=== PATIENT | female | born 1995 | race Caucasian/White ===

== ENCOUNTER 2020-02-24 10:19 | Outpatient (CLI) | payer BC ==
[2020-02-24 10:55] LABS: BASOPHILS % (AUTO) 0.4 % (0-1); EOSINOPHILS # (AUTO) 0.1 X10'3 (0-0.9); EOSINOPHILS % (AUTO) 1.2 % (0-6); HEMATOCRIT 39.7 % (35.0-45.0); HEMOGLOBIN 13.8 g/dl (12.0-16.0); LYMPHOCYTES # (AUTO) 2.7 X10'3 (1.1-4.8); MEAN CORPUSCULAR HEMOGLOBIN 32.7 PG (27.0-31.0); MEAN CORPUSCULAR HGB CONC 34.7 g/dL (33.0-36.5); MEAN CORPUSCULAR VOLUME 94.1 FL (78-98); MEAN PLATELET VOLUME 7.4 FL (7.4-10.4); MONOCYTES # (AUTO) 0.8 X10'3 (0-0.9); MONOCYTES % (AUTO) 9.5 % (2-12); NEUTROPHILS # (AUTO) 5.1 X10'3 (1.8-7.7); NEUTROPHILS % (AUTO) 57.9 % (42-75); PLATELET COUNT 425 X10'3 (140-440); RED BLOOD COUNT 4.22 X10'6 (4.20-5.60); RED CELL DISTRIBUTION WIDTH 12.3 % (11.5-14.5); WHITE BLOOD COUNT 8.7 X10'3 (4.5-11.0)
[2020-02-24 11:19] LABS: ALANINE AMINOTRANSFERASE 20 U/L (12-78); ALBUMIN/GLOBULIN RATIO 1.1 (1.1-1.5); ALKALINE PHOSPHATASE 105 IU/L (46-116); ANION GAP 9 (8-16); ASPARTATE AMINO TRANSFERASE 19 U/L (10-37); BILIRUBIN,TOTAL 0.5 MG/DL (0.1-1.0); BLOOD UREA NITROGEN 12 MG/DL (7-18); BUN/CREATININE RATIO 15.6 (6.6-38.0); CALCIUM 9.2 MG/DL (8.5-10.1); CHLORIDE 101 MMOL/L (99-107); CHOL/HDL RATIO 2.7 (0.00-4.99); CHOLESTEROL 140 MG/DL (0-200); CREATININE 0.77 MG/DL (0.40-0.90); GLUCOSE 88 MG/DL (70-104); HDL CHOLESTEROL 52 MG/DL (35-60); LDL CHOLESTEROL 74 MG/DL (50-100); POTASSIUM 4.1 MMOL/L (3.5-5.1); SODIUM 137 MMOL/L (135-145); TOTAL CARBON DIOXIDE 27.4 MMOL/L (24-32); TOTAL PROTEIN 7.8 G/DL (6.4-8.2); TRIGLYCERIDES 54 MG/DL (20-135); eGFR > 90 ML/MIN
[2020-02-24 11:28] LABS: CLARITY,URINE SLIGHTLY CLOUDY (Clear); COLOR,URINE STRAW (Yellow); GLUCOSE, URINE NEGATIVE (Neg); KETONES,URINE NEGATIVE (Neg); LEUKOCYTE ESTERASE ,URINE NEGATIVE (Neg); NITRITES, URINE NEGATIVE (Neg); OCCULT BLOOD,URINE SMALL (Neg); PROTEIN,URINE NEGATIVE (Neg); UROBILINOGEN,URINE 0.2 E.U/dL (0.2-1.0)
[2020-02-24 11:34] LABS: UA COLLECTION TYPE CLN CATCH MIDSTREAM
[2020-02-24 11:35] LABS: BACTERIA,URINE FEW /HPF (Neg); RBC,URINE 0-2 /HPF (0-2); SQUAMOUS EPITHELIAL CELL,UR FEW /LPF (FEW); WBC,URINE 0-4 /HPF (0-4)
== END 2020-02-24 23:59 | disposition home or self-care (01) ==
LOC: EEVIPCON 10:19 → LAB 10:19
PROVIDERS: ATTEND Family Medicine
DX: Z00.00 Encounter for general adult medical examination without abnormal findings (principal)
CPT/HCPCS: 36415; 80053; 80061; 81001; 84439; 84443; 85025

== ENCOUNTER 2022-03-02 07:32 | Emergency (ER) | payer BC ==
[~2022-03-02] VITALS: Ht 149.9 cm; Wt 63.0 kg
[2022-03-02 07:41] VITALS: BP 124/76
== END 2022-03-02 08:54 | disposition home or self-care (01) ==
LOC: ER 07:33
DX: B34.9 Viral infection, unspecified (principal); J06.9 Acute upper respiratory infection, unspecified; R53.83 Other fatigue; R05.9 Cough, unspecified; R09.89 Other specified symptoms and signs involving the circulatory and respiratory systems
CPT/HCPCS: 99281

== ENCOUNTER 2022-05-10 13:01 | Emergency (ER) | payer BC ==
[~2022-05-10] VITALS: Ht 149.9 cm; Wt 63.0 kg
[2022-05-10 13:22] VITALS: BP 126/84
[2022-05-10 15:19] LABS: BASOPHILS # (AUTO) 0.1 X10'3 (0-0.2); BASOPHILS % (AUTO) 0.5 % (0-1); EOSINOPHILS # (AUTO) 0.1 X10'3 (0-0.9); EOSINOPHILS % (AUTO) 0.7 % (0-6); LYMPHOCYTES # (AUTO) 2.8 X10'3 (1.1-4.8); LYMPHOCYTES % (AUTO) 23.3 % (21-51); MEAN CORPUSCULAR HEMOGLOBIN 31.9 PG (27.0-31.0); MEAN CORPUSCULAR HGB CONC 34.2 g/dL (33.0-36.5); MEAN CORPUSCULAR VOLUME 93.2 FL (78-98); MEAN PLATELET VOLUME 6.7 FL (7.4-10.4); MONOCYTES # (AUTO) 0.8 X10'3 (0-0.9); MONOCYTES % (AUTO) 7.1 % (2-12); NEUTROPHILS # (AUTO) 8.1 X10'3 (1.8-7.7); NEUTROPHILS % (AUTO) 68.4 % (42-75); PLATELET COUNT 444 X10'3 (140-440); RED BLOOD COUNT 4.08 X10'6 (4.20-5.60); RED CELL DISTRIBUTION WIDTH 12.7 % (11.5-14.5); WHITE BLOOD COUNT 11.8 X10'3 (4.5-11.0)
[2022-05-10 15:36] LABS: ALANINE AMINOTRANSFERASE 32 U/L (12-78); ALBUMIN/GLOBULIN RATIO 1.3 (1.1-1.5); ALKALINE PHOSPHATASE 88 IU/L (46-116); ANION GAP 9 (8-16); ASPARTATE AMINO TRANSFERASE 19 U/L (10-37); BILIRUBIN,TOTAL 0.3 MG/DL (0.1-1.0); BLOOD UREA NITROGEN 11 MG/DL (7-18); BUN/CREATININE RATIO 12.6 (6.6-38.0); CALCIUM 9.1 MG/DL (8.5-10.1); CHLORIDE 104 MMOL/L (99-107); CREATININE 0.87 MG/DL (0.40-0.90); GLUCOSE 97 MG/DL (70-104); SODIUM 139 MMOL/L (135-145); TOTAL CARBON DIOXIDE 26.1 MMOL/L (24-32); TOTAL PROTEIN 7.2 G/DL (6.4-8.2); eGFR 78 ML/MIN
[2022-05-10] MEDS ORDERED: MECL-231 PO (15:46)
== END 2022-05-10 16:18 | disposition home or self-care (01) ==
LOC: ER 13:01
DX: R42 Dizziness and giddiness (principal); H92.03 Otalgia, bilateral; R11.0 Nausea; R53.83 Other fatigue; R61 Generalized hyperhidrosis
CPT/HCPCS: 36415; 80053; 85025; 99283

== ENCOUNTER 2022-08-03 10:41 | Emergency (ER) | payer BC ==
[~2022-08-03] VITALS: Ht 149.9 cm; Wt 67.2 kg
[~2022-08-03 10:41] MED LIST: MECL-231 PO
[2022-08-03 10:46] VITALS: BP 120/80
--- NOTE | 2022-08-03 11:00 | NUR ---
Pt in [facility]4. Pt c/o general not feeling well. Pt c/o cough and sneezing. Pt educated to POC. Pt in agreement. Pending providers eval and treatment.
[2022-08-03] MEDS ORDERED: AMOX-580 PO (12:12)
== END 2022-08-03 12:26 | disposition home or self-care (01) ==
LOC: ER 10:42
DX: J32.9 Chronic sinusitis, unspecified (principal); J02.9 Acute pharyngitis, unspecified; Z20.822 Contact with and (suspected) exposure to COVID-19; Z79.899 Other long term (current) drug therapy
CPT/HCPCS: 87081; 87635; 87880; 99283; C9803

== ENCOUNTER 2022-09-01 08:07 | Emergency (ER) | payer BC ==
[~2022-09-01] VITALS: Ht 149.9 cm; Wt 65.9 kg
[~2022-09-01 08:07] MED LIST changes: +AMOX-580 PO
[2022-09-01 08:20] VITALS: BP 119/52
[2022-09-01] MEDS ORDERED: IBUP-1986 PO (09:22)
[2022-09-01] MEDS ORDERED: ketorolac trometh. 30mg/ml inj. IM ONE (09:25)
== END 2022-09-01 09:49 | disposition home or self-care (01) ==
LOC: ER 08:08
DX: M79.661 Pain in right lower leg (principal)
CPT/HCPCS: 96372; 99283; J1885; A6449

== ENCOUNTER 2023-04-29 12:50 | Outpatient (CLI) | payer BC ==
[~2023-04-29 12:50] MED LIST changes: -AMOX-580 PO; +IBUP-1986 PO
[2023-04-29 13:46] LABS: BASOPHILS % (AUTO) 0.5 % (0-1); EOSINOPHILS # (AUTO) 0.1 X10'3 (0-0.9); EOSINOPHILS % (AUTO) 0.5 % (0-6); HEMOGLOBIN 14.1 g/dl (12.0-16.0); LYMPHOCYTES # (AUTO) 3.4 X10'3 (1.1-4.8); LYMPHOCYTES % (AUTO) 33.8 % (21-51); MEAN CORPUSCULAR HEMOGLOBIN 31.2 PG (27.0-31.0); MEAN CORPUSCULAR HGB CONC 33.6 g/dL (33.0-36.5); MEAN CORPUSCULAR VOLUME 92.8 FL (78-98); MEAN PLATELET VOLUME 7.2 FL (7.4-10.4); MONOCYTES # (AUTO) 0.8 X10'3 (0-0.9); MONOCYTES % (AUTO) 8.4 % (2-12); NEUTROPHILS # (AUTO) 5.7 X10'3 (1.8-7.7); NEUTROPHILS % (AUTO) 56.8 % (42-75); PLATELET COUNT 445 X10'3 (140-440); RED BLOOD COUNT 4.52 X10'6 (4.20-5.60); RED CELL DISTRIBUTION WIDTH 12.7 % (11.5-14.5)
== END 2023-04-29 23:59 | disposition home or self-care (01) ==
LOC: RAD 12:50
PROVIDERS: ATTEND Physician Assistant
DX: J32.9 Chronic sinusitis, unspecified (principal)
CPT/HCPCS: 36415; 70486; 85025

== ENCOUNTER 2023-07-03 09:09 | Emergency (ER) | payer BC ==
[~2023-07-03] VITALS: Ht 147.3 cm; Wt 66.6 kg
[2023-07-03] MEDS ORDERED: BENZ9GEL TOP (09:43)
[2023-07-03] MEDS ORDERED: HYDR-3965 PO (09:43)
[2023-07-03 09:55] VITALS: BP 104/74; PULSE 79; RESP 16; TEMP 97.9; O2SAT 98
== END 2023-07-03 10:00 | disposition home or self-care (01) ==
LOC: ER 09:10
DX: K05.30 Chronic periodontitis, unspecified (principal); Z79.1 Long term (current) use of non-steroidal anti-inflammatories (NSAID); Z79.899 Other long term (current) drug therapy
CPT/HCPCS: 99283

== ENCOUNTER 2024-06-25 14:46 | Emergency (ER) | payer BC ==
[~2024-06-25] VITALS: Ht 149.9 cm; Wt 65.0 kg
[~2024-06-25 14:46] MED LIST changes: +BENZ9GEL TOP
[2024-06-25 14:48] VITALS: PULSE 89; RESP 16; O2SAT 98
[2024-06-25] MEDS ORDERED: AMOX500C2 PO (15:08)
[2024-06-25] MEDS ORDERED: PENICILLIN G BENZATHINE 2,400,000 UNIT/4 ML SYRINGE IM ONE (15:10)
[2024-06-25] MEDS: CefTRIAXone/D5W-Rocephin 1gm 50 ML IV ONE (15:42)
[2024-06-25] MEDS: CefTRIAXone 1000mg IM Kit (w/lidocaine diluent) IM ONE (15:52)
[2024-06-25 15:53] VITALS: TEMP 97.9
== END 2024-06-25 15:54 | disposition home or self-care (01) ==
LOC: ER 14:46
DX: J03.90 Acute tonsillitis, unspecified (principal); Z79.1 Long term (current) use of non-steroidal anti-inflammatories (NSAID); Z79.899 Other long term (current) drug therapy
CPT/HCPCS: 96372; 99283; J0696

== ENCOUNTER 2024-10-11 14:53 | Emergency (ER) | payer BC ==
[~2024-10-11] VITALS: Ht 149.9 cm; Wt 62.3 kg
[2024-10-11 14:55] VITALS: BP 119/74; PULSE 80; RESP 15; TEMP 98.3; O2SAT 98
--- NOTE | 2024-10-11 15:03 | Physician Documentation ---
History of Present Illness ~ Chief Complaint: Ankle pain Stated Complaint: ANKLE PAIN Time Seen by MD: 15:01 OK to notify your PCP?: Yes Primary Medical Doctor: KECIA EATON Source: patient Mode of Arrival: POV Exam Limitations: no limitations HPI 29-year-old female presents with left ankle pain after working today. She reports she works in a job where she is constantly walking and standing. She has a history of a previous injury to this ankle. Not taken any medication for her pain prior to arrival. Tetanus witin 5 years: No Medication Reconciliation Allergies: Coded Allergies: No Known Allergies (Unverified , 09/01/22) Scheduled Benzocaine (Anbesol), 1 APPLIC TOP Q6H Ibuprofen (Ibuprofen), 1 TAB PO Q8H Meclizine Hcl (Meclizine Hcl), 1-2 TABLET PO TID Past Medical History Past Medical History: No Pertinent History Past Surgical History: no surgical history Alcohol Use: None Drug Use: none Lives with: Family Lives In: Home Occupation: employed Review of Systems All Other Systems at this time: Reviewed and Negative Physical Exam Vital Signs: RN Vital Signs have been reviewed: Yes, Temperature: 98.3, Source: Temporal, Heart Rate: 80, Respiratory Rate: 15, BP: 119/74, Pulse Oximetry: 98, Weight: 62.300 Pulse Oximetry Reflects: adequate oxygenation Physical Exam General: Alert, no distress. HEENT: No injection, moist mucous membranes. Neck: Full range of motion. Respiratory: No respiratory distress, equal chest rise and fall. Chest: No accessory muscle use. Cardiovascular: Regular rate and rhythm. Gastrointestinal: Nondistended. Extremities: Left ankle- Normal range of motion, no deformity. Good CSM, good pulses Neurologic: Oriented x4. Psychiatric: Normal mood and affect. Skin: Normal color, warm and dry. Progress Results/Orders Reviewed/noted all lab results: Yes Results/Orders Orders - SHELBY TERESA Ortho Orders (10/11/24 ) Completed Orders - SHELBY TERESA Naproxen Tablet (Naprosyn Tablet) (10/11/24 15:05) Vital Signs 10/11/24 14:55 Temp 98.3 Pulse 80 Resp 15 B/P (MAP) 119/74 Pulse Ox 98 EKG/XRAY/CT/US/VASC/MRI Bone/Soft Tissue X-Ray (Ext.) : Additional Comment Left ankle x-ray as interpreted by me; no joint effusion, no acute fracture, no soft tissue swelling, no dislocation, or foreign body. Medical Decision Making Findings 29-year-old female presents with left ankle pain after repeat use and standing. There is no acute fracture or dislocation noted on x-ray. Best that for X ray is normal but the limitations on an x-ray and that she may need outpatient further imaging such as an MRI and to follow up with her primary care provider in the next 3 days. Discussed the RICE method, I gave Tylenol and naproxen while in the department, and can return back here for any new or worsening symptoms. Placed an ankle Velcro splint to help provide some extra support. General Diff Dx:Considerations: Include: Fracture, Hematoma, Malunion, Neurovascular injury, Open fracture Departure Disposition: HOME / SELF CARE / HOMELESS Impression: Primary Impression: Sprain of ankle Condition: Stable Discharge Instructions: Ankle Sprain Additional Instructions: Please rest, ice and elevate this ankle especially after standing on it all day. You can use the velcro ankle splint to help provide extra support to this ankle especially when you were working. You can use ibuprofen and Tylenol for pain relief. Your x-ray does not show any acute fracture or dislocation but as discussed there is limitation with X ray and if this persists you may need further imaging such as an MRI done on an outpatient basis. Please follow up with her primary care provider in the next 3 days and return back here for any new or worsening symptoms. Referrals: NO PRIMARY CARE PROVIDER (PCP) Additional Comment Medical Screen Exam This patient recieved a medical screening examination. After reviewing the individual's medical complaints with presenting symptoms and performing an appropriate physical examination, it was determined that no immediate life-threatening emergency medical condition is present. This individual is also not a women having contractions. Signature Scribe Signature: . Attestation: Scribed for Shelby Teresa [employer] by Shelby Olsen NP . 10/11/24 15:36 Parts of this note were created using [email or web address] voice recognition software program. While efforts were made to correct any mistakes made by this voice recognition software program, nonsensical phrases may remain in this note. In addition, there may be errors and syntax, grammar, content and spelling. SHELBY TERESA [facility] Oct 11, 2024 15:03
--- NOTE | 2024-10-11 15:20 | RADIOLOGY REPORT ---
CLINICAL INDICATION: ANKLE PAIN LEFT TECHNIQUE: DI ANKLE, COMPLETE(3VW MIN) Comparison: None FINDINGS/IMPRESSION: : There is no evidence of acute fracture or dislocation. Soft tissues are unremarkable. Degenerative spurring of the calcaneus
[2024-10-11] MEDS: naproxen 500mg tablet PO ONE (16:01)
== END 2024-10-11 16:31 | disposition home or self-care (01) ==
LOC: ER 14:53
DX: S93.492A Sprain of other ligament of left ankle, initial encounter (principal); Z79.899 Other long term (current) drug therapy; X58.XXXA Exposure to other specified factors, initial encounter; Y93.89 Activity, other specified; Y92.89 Other specified places as the place of occurrence of the external cause; Y99.0 Civilian activity done for income or pay
CPT/HCPCS: 29515; 73610; 99283; L1930

== ENCOUNTER 2024-12-12 13:28 | Emergency (ER) | payer BC, OTHER ==
[~2024-12-12] VITALS: Ht 147.3 cm; Wt 45.8 kg
[2024-12-12 13:33] VITALS: BP 131/82; PULSE 73; RESP 16; TEMP 97.9; O2SAT 98
--- NOTE | 2024-12-12 14:21 | Physician Documentation ---
History of Present Illness ~ Chief Complaint: Medical Clearance Stated Complaint: SEE CHIEF COMPLAIN Time Seen by MD: 13:59 Primary Medical Doctor: KECIA EATON HPI Patient is a 29-year-old female that presents to the emergency department after exposure to blood borne pathogen while at work. He works with environmental services here at the hospital. Reports that she was cleaning up around an area and was accidentally poked by a needle that she believes was a used needle patient's room. Reports that he exposure was to a finger on her right hand. Patient immediately and notify the nurse in the room and has reported for post exposure evaluation. Tetanus within 5 years?: No Medication Reconciliation Allergies: Coded Allergies: No Known Allergies (Unverified , 09/01/22) Scheduled Benzocaine (Anbesol), 1 APPLIC TOP Q6H Ibuprofen (Ibuprofen), 1 TAB PO Q8H Meclizine Hcl (Meclizine Hcl), 1-2 TABLET PO TID Past Medical History Past Medical History: No Pertinent History Past Surgical History: no surgical history Alcohol Use: None Drug Use: none Lives with: Family Lives In: Home Occupation: employed Review of Systems ROS As stated above in the HPI, otherwise all systems are reviewed and negative. Physical Exam Vital Signs: Temperature: 97.9, Source: Temporal, Heart Rate: 73, Respiratory Rate: 16, BP: 131/82, Pulse Oximetry: 98, Weight: 45.800 Oxygen Flow Rate: 0 Physical Exam VITALS: Reviewed and as above. GENERAL: Alert, no apparent distress. HEENT: Normocephalic, atraumatic, PERRL, EOMI, dry mucosa, no erythema RESPIRATORY: Lungs clear, normal breath sounds, no respiratory distress. CHEST: No accessory muscle use, no retractions CV: Regular rate, rhythm, no edema, no murmur, No: JVD GI: Soft, non-tender, bowels sounds present, no rebound, guarding, or rigidity BACK: No CVA tenderness, or swelling MUSCULOSKELETAL No deformities, no edema SKIN: Warm and dry, no rash NEURO: Oriented x4, No motor or sensory deficit PSYCH: Normal mood and affect, no agitation Progress Results/Orders Results/Orders Orders - MYA TUCKER Hep B Core Ab, Igm (12/12/24 14:19) Hep B Core Ab, Tot (12/12/24 14:19) Hiv Ab 1&2 Rapid Scn (12/12/24 14:19) Vital Signs 12/12/24 13:33 Temp 97.9 Pulse 73 Resp 16 B/P (MAP) 131/82 Pulse Ox 98 O2 Flow Rate 0 Medical Decision Making Findings Blood borne pathogen post exposure evaluation for employee. Post exposure laboratory diagnostics ordered at this time. Results pending we will follow up with the patient. Departure Disposition: HOME / SELF CARE / HOMELESS Impression: Primary Impression: General medical exam Additional Impression: Exposure to blood-borne pathogen Condition: Stable Discharge Instructions: Medical Screening Exam, Needlestick and Sharps Injury, [id number] Additional Instructions: Blood borne pathogen post exposure evaluation for employee. Post exposure laboratory diagnostics ordered at this time. Results pending we will follow up with the patient. Follow up with the HR department please follow up with her direct public relations account supervisor. Please return to the emergency department if you have any worsening or recurrent symptoms or any additional concerning symptoms that we discussed here today. We have sent off laboratory diagnostics we will follow up with you when the results are available. Referrals: NO PRIMARY CARE PROVIDER (PCP) Education Educated: Patient Educated regarding: diagnosis, treatment, need for follow up Signature Scribe Signature: A Attestation: Scribed for Mya Tcuker by MAME Padilla . 12/12/24 14:27 MYA TUCKER Dec 12, 2024 14:21
== END 2024-12-12 14:47 | disposition home or self-care (01) ==
LOC: ER 13:29
DX: Z00.00 Encounter for general adult medical examination without abnormal findings (principal); Z77.21 Contact with and (suspected) exposure to potentially hazardous body fluids
CPT/HCPCS: 99282; 99283